=== PATIENT | female | born 1980 | race American Indian/Alaskan Native ===

== ENCOUNTER 2016-11-13 12:39 | Emergency (ER) | payer SELFPAY ==
[2016-11-13] MEDS ORDERED: PEPCID IV ONE (16:17)
[2016-11-13] MEDS ORDERED: BENADRYL IV ONE (16:17)
[2016-11-13] MEDS ORDERED: NACL 0.9% 1000 ML 1,000 ML IV ONE (16:17)
[2016-11-13 18:45] VITALS: BP 123/79
--- NOTE | 2016-11-13 22:31 | Emergency Department Report ---
Entered by RADHA CONNER, acting as scribe for MONIKA WASSERMAN NP. ED Allergic Reaction HPI - General Chief complaint: Allergic Reaction Stated complaint: ALLERGIC REACTION Time Seen by Provider: 11/13/16 15:49 Source: patient Mode of arrival: Ambulatory Limitations: No Limitations - History of Present Illness Initial Comments: This is a 36-year-old female that is non-toxic, non ill appearing, in no acute distress with c/o allergic reaction that began 1 day ago. Patient states an unknown reaction and the only change in her diet was drinking V8 juice for 2 weeks. Patient reports rash and whelp left arm and tingling to face. Patient also report diffuse itching. Patient also stated had sore throat and feeling swelling to the back of the throat yesterday but denies having those symptoms today. Patient denies any drooling, swelling tongue, difficulty breathing, hoarseness, change of voice, SOB, chest pain, numbness, stiff neck, and headache. NKDA. Patient's mother (Elie) is currently at bedside. She denies any drug allergies. Denies past medical history. MD Complaint: allergic reaction, hives, other (rash) Onset/Timin -: Gradual, days(s) Exposure: unknown Symptoms: rash, itching. denies: facial swelling, lip swelling, difficulty swallowing, difficulty breathing, orolingual swelling, hoarseness, syncopy, dizziness, nausea, vomiting, abdominal pain Severity: moderate Treatment Prior to Arrival: benadryl Previous Allergy History: none - Related Data Previous Rx's Medication Instructions Recorded Last Taken Type diphenhydrAMINE [Benadryl CAP] 25 mg PO Q8HR PRN #15 capsule 11/13/16 Unknown Rx predniSONE [Deltasone] 20 mg PO BID #10 tab 11/13/16 Unknown Rx Allergies Allergy/AdvReac Type Severity Reaction Status Date / Time No Known Allergies Allergy Unverified 11/13/16 13:07 ED Review of Systems Comment: All other systems reviewed and negative Constitutional: denies: chills, fever Eyes: denies: eye pain, eye discharge, vision change ENT: denies: ear pain, throat pain, dental pain, hearing loss, epistaxis Respiratory: denies: cough, shortness of breath, wheezing Cardiovascular: denies: chest pain, palpitations Gastrointestinal: denies: abdominal pain, nausea, diarrhea Genitourinary: denies: urgency, dysuria, discharge Musculoskeletal: denies: back pain, joint swelling, arthralgia Skin: rash (Bilaterally arms), pruritus (diffuse). denies: lesions Neurological: denies: headache, weakness, paresthesias ED Past Medical Hx - Past Medical History Previous Medical History?: Yes Additional medical history: Low blood pressure, Anemia, Vaginal delivery x 5 - Surgical History Past Surgical History?: No - Social History Smoking Status: Never Smoker Substance Use Type: Alcohol - Medications Home Medications: Home Medications Medication Instructions Recorded Confirmed Last Taken Type diphenhydrAMINE [Benadryl CAP] 25 mg PO Q8HR PRN #15 capsule 11/13/16 Unknown Rx predniSONE [Deltasone] 20 mg PO BID #10 tab 11/13/16 Unknown Rx ED Physical Exam - General Limitations: No Limitations General appearance: alert, in no apparent distress - Head Head exam: Present: atraumatic, normocephalic, normal inspection - Eye Eye exam: Present: normal appearance, PERRL, EOMI. Absent: scleral icterus, conjunctival injection, nystagmus, periorbital swelling, periorbital tenderness Pupils: Present: normal accommodation. Absent: irregular - ENT ENT exam: Present: normal exam, normal orophraynx, mucous membranes moist, TM's normal bilaterally, normal external ear exam - Expanded ENT Exam Expanded Ear exam: Present: normal external inspection Mouth exam: Present: normal external inspection, tongue normal, other (Uvula midline with no swelling. ). Absent: drooling, trismus, muffled voice, tongue elevation, laceration Teeth exam: Present: normal inspection Throat exam: Positive: normal inspection. Negative: tonsillar erythema, tonsillomegaly, tonsillar exudate, R peritonsillar mass, L peritonsillar mass - Neck Neck exam: Present: normal inspection, full ROM. Absent: tenderness, meningismus, lymphadenopathy, thyromegaly - Respiratory Respiratory exam: Present: normal lung sounds bilaterally. Absent: respiratory distress, wheezes, rales, rhonchi, stridor, chest wall tenderness, accessory muscle use, decreased breath sounds, prolonged expiratory - Cardiovascular Cardiovascular Exam: Present: regular rate, normal rhythm, normal heart sounds. Absent: bradycardia, tachycardia, irregular rhythm, systolic murmur, diastolic murmur, rubs, gallop - GI/Abdominal GI/Abdominal exam: Present: soft, normal bowel sounds. Absent: distended, tenderness, guarding, rebound, rigid, diminished bowel sounds - Extremities Exam Extremities exam: Present: normal inspection, full ROM, normal capillary refill. Absent: tenderness, pedal edema, joint swelling, calf tenderness - Back Exam Back exam: Present: normal inspection, full ROM. Absent: tenderness, CVA tenderness (R), CVA tenderness (L), muscle spasm, paraspinal tenderness, vertebral tenderness, rash noted - Neurological Exam Neurological exam: Present: alert, oriented X3, CN II-XII intact, normal gait, reflexes normal - Psychiatric Psychiatric exam: Present: normal affect, normal mood - Skin Skin exam: Present: warm, dry, rash (left upper hand), erythema (left upper hand ), urticaria (diffuse). Absent: cyanosis, diaphoretic, vesicles, petechiae, pallor, abrasion, ecchymosis - Other Other exam information: No flushing noticed. No swelling to lips, tongue, uvula, periorbital, or conjunctival swelling. ED Course Vital Signs 11/13/16 11/13/16 11/13/16 13:07 16:40 18:30 Temperature 98.6 F 98.6 F Pulse Rate 84 64 Respiratory 18 18 18 Rate Blood Pressure 128/89 Blood Pressure 123/79 [Right] O2 Sat by Pulse 100 97 97 Oximetry - Reevaluation(s) Reevaluation #1: 11/13/16 16:41 Patient is able to talk in full sentence with no signs of distress. Mother is currently present at bedside. Reevaluation #2: 11/13/16 17:51 Patient is resting comfortably. Patient stated itching has subsided. NO signs of distress noted. Reevaluation #3: 11/13/16 18:57 Patients family is present at bedside and stated will drive her home. Patient was instructed not to drive any machinery after d/c due to Benadryl causes drowsiness/sedation. ED Medical Decision Making - Medical Decision Making Ed course: This is a 36-year-old female that presents with allergic reaction 1- Patient was examined by myself. No signs of an anaphylaxis reaction. No lip, tongue, or uvula swelling. No signs and symptoms of angioedema. Patient is able to talk in full sentences with no signs of distress noted. Patient mother is curretnly present at bedside. 2- Patient received 1000 NS with Solu-Medrol 125 mg, Benadryl 25 mg and Pepcid 20 mg IV. Patient was instructed not to operate any machinery after discharge due to sedation/drowsiness is of Benadryl. Mother states she'll just the patient home after discharge. 3- patient was discharged with prednisone 40 mg 5 days and Benadryl. 4- at time time of discharge, the patient does not seem toxic or ill in appearance. No acute signs of distress noted. Patient agrees to discharge treatment plan of care. No further questions noted by the patient. 5- patient was instructed to follow-up with her primary care doctor in 24 hours or symptoms such as difficulty breathing, lip swelling, drooling, difficulty talking, swelling of tongue, or swelling of eyes return to emergency room as was possible ED Disposition Clinical Impression: Allergic reaction Disposition: DC-01 TO HOME OR SELFCARE Is pt being admited?: No Does the pt Need Aspirin: No Condition: Stable Instructions: Prednisone (By mouth), Analgesic/Antihistamine/Decongestant (By mouth), Urticaria (ED), Anaphylaxis (ED) Additional Instructions: follow-up with your primary care doctor in 24 hours or symptoms such as difficulty breathing, lip swelling, drooling, difficulty talking, swelling of tongue, or swelling of eyes return to emergency room as was possible Take prednisone and Benadryl as prescribed. Prescriptions: diphenhydrAMINE [Benadryl CAP] 25 mg PO Q8HR PRN #15 capsule PRN Reason: Itching predniSONE [Deltasone] 20 mg PO BID #10 tab Referrals: PRIMARY CARE, [Primary Care Provider] - 24 Hours [facility] [Outside] - 3-5 Days [facility] [Outside] - 3-5 Days GENARO JOHN JR, MD [Staff Physician] - 24 Hours Forms: Work/School Release Form(ED) This documentation as recorded by the UBALDO trent PEARL,accurately reflects the service I personally performed and the decisions made by ,MONIKA WASSERMAN, INDUSTRIAL RELATIONS DIRECTOR.
== END 2016-11-13 19:09 | disposition home or self-care (01) ==
LOC: ED 12:39
DX: T78.40XA Allergy, unspecified, initial encounter (principal); Y92.9 Unspecified place or not applicable
CPT/HCPCS: 93005; 93010; 96361; 96374; 96375; 99282; J1200; J2930; J7030

== ENCOUNTER 2019-05-25 09:17 | Emergency (ER) | payer OTHER ==
[2019-05-25 09:40] VITALS: BP 144/99
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
== END 2019-05-25 12:29 | disposition home or self-care (01) ==
LOC: ED 09:17
DX: M54.9 Dorsalgia, unspecified (principal); M25.569 Pain in unspecified knee; Z79.899 Other long term (current) drug therapy; V49.49XA Driver injured in collision with other motor vehicles in traffic accident, initial encounter; Y93.89 Activity, other specified; Y92.410 Unspecified street and highway as the place of occurrence of the external cause; Y99.8 Other external cause status
CPT/HCPCS: 71046